=== PATIENT | male | born 1960 | race Two or more races ===

== ENCOUNTER 2018-03-05 07:44 | Day surgery (SDC) | payer OTHER ==
[2018-03-05] VITALS (7 sets, daily range): BP systolic 113–157; BP diastolic 71–80
[~2018-03-05] VITALS: Ht 172.7 cm; Wt 117.9 kg
--- NOTE | 2018-03-05 06:55 | Anethesia Preoperative Eval ---
Anesthesia Pre-op PMH/ROS General Date of Evaluation: Mar 05, 2018 Time of Evaluation: 06:52 Anesthesiologist: dave ASA Score: ASA 3 Mallampati Score Class I : Soft palate, uvula, fauces, pillars visible Class II: Soft palate, uvula, fauces visible Class III: Soft palate, base of uvula visible Class IV: Only hard plate visible Mallampati Classification: Class II Surgeon: yudy Diagnosis: gerd Surgical Procedure: egd Anesthesia History: none Social History: smoking - nonsmoker, alcohol use Family History: no anesthesia problems Allergies: Coded Allergies: No Known Allergies (Unverified , 03/04/18) Medications: see eMAR Past Medical History Cardiovascular: Reports: HTN, other - hypercholesterolemia; Denies: CAD, GA, valve dz, arrhythmia Gastrointestinal/Genitourinary: Reports: GERD; Denies: CRI, ESRD, other Musculoskeletal/Integumentary: Reports: OA, other - back pain, sciatica, neck pain Anesthesia Pre-op Phys. Exam Physician Exam Last Vital Signs Date Time Temp Pulse Resp B/P (MAP) Pulse Ox O2 Delivery O2 Flow Rate FiO2 03/05/18 08:28 Room Air 03/05/18 08:26 98.0 69 18 157/73 (101) 96 98.0 Constitutional: NAD Neurologic: CN 2-12 intact Cardiovascular: RRR Respiratory: CTA Gastrointestinal: S/NT/ND Airway Exam Mallampati Score: Class II MO: full Neck: supple TMD: 2fb ROM: full Teeth: intact Anesthesia Pre-op A/P Risk Assessment & Plan Assessment: asa3 Plan: mac Status Change Before Surgery: No Pre-Antibiotics Drug: Susana De Paz MD Mar 05, 2018 06:55
[~2018-03-05 07:44] MED LIST: Atropine Inj 1mg/10ml Syr IV PRN; DiphenhydrAMINE 50mg/ml Inj IVP PRN; LOSARTAN POTASS50 MG ORAL; Labetalol 5mg/ml 20ml vial IV PRN; Midazolam 2mg/2ml Inj IVP PRN; fentaNYL 100 mcg/2 mL IV PRN
[2018-03-05] MEDS ORDERED: PREVACID30 MG ORAL (08:22)
[2018-03-05] MEDS ORDERED: Lidocaine 1% MPF 10mg/ml 5ml ONE (08:30)
[2018-03-05] MEDS ORDERED: Propofol 200mg/20ml IV ONE (08:30)
[2018-03-05] MEDS ORDERED: LR 1000ml ONE (08:30)
--- NOTE | 2018-03-05 08:43 | Short Stay Surgery H&P ---
History of Present Illness History of Present Illness Chief Complaint Abdominal pain/GERDS HPI Chano Thompson is a 58 year old male who was admitted on for GERD Patient History Allergies: Coded Allergies: No Known Allergies (Unverified , 03/04/18) PAST MEDICAL HISTORY: (1) Hypertension (2) Hyperlipidemia (3) Arthritis Medication History Scheduled Lansoprazole* (Prevacid*), 30 MG ORAL DAILY, (Reported) Losartan Potassium* (Losartan Potassium*), 50 MG ORAL DAILY, (Reported) Review of Systems Cardiovascular: Reports: no symptoms, hypertension Respiratory: Reports: no symptoms Skeletal: Reports: trauma, other Gastrointestinal: Reports: gastro esophageal reflux disease Genitourinary: Reports: no symptoms Neurologic: Reports: no symptoms Endocrine: Reports: no symptoms Hematologic: Reports: no symptoms Physical Exam Vital Signs Last Vital Signs Date Time Temp Pulse Resp B/P (MAP) Pulse Ox O2 Delivery O2 Flow Rate FiO2 03/05/18 08:28 Room Air 03/05/18 08:26 98.0 69 18 157/73 (101) 96 98.0 Skin: normal HENT: normal Heart: normal Lungs: normal Abdomen: normal Extremities: normal Genitourinary: normal Plan Plan of Care Upper GI endoscopy and biopsy Preop Interventions None. Summary of Findings see the reports Attestation Are the patient's medical conditions optimized for surgery? Attestation Response: yes Beckie Courtney MD Mar 05, 2018 08:43
--- NOTE | 2018-03-05 08:44 | Pre-Procedure Note/Attestation ---
Pre-Procedure Note/Attestation Complete Prior to Procedure Planned Procedure: left Procedure Narrative: Examination of the upper GI tract via endoscopy Indications for Procedure Pre-Operative Diagnosis: R/O gastritis/gastric ulcer Attestation I attest that I discussed the nature of the procedure; its benefits; risks and complications; and alternatives (and the risks and benefits of such alternatives ), prior to the procedure, with the patient (or the patient's legal customer account representative). I attest that, if there was a reasonable possibility of needing a blood transfusion, the patient (or the patient's legal customer account representative) was given the [facility] standardized written summary, pursuant to the Dieter Justin Blood Safety Act ([place] Health and Safety Code # 1645, as amended). I attest that I re-evaluated the patient just prior to the surgery and that there has been no change in the patient's H&P, except as documented below: Beckie Courtney MD Mar 05, 2018 08:44
--- NOTE | 2018-03-05 08:59 | Endoscopy Procedure Note ---
Endoscopy Procedure Note General Indication for Procedure: Chronic heartburn/Gerds Procedures Performed: EGD - Small Hiatal Hernia. Lower esophageal erosions consistent with esophagitis, biopsied. Evidencee of Bueno's mucosa biopsied. Mild gastroduodenitis, biopsies obtaind from fundus and mid body of the stomach and distal duodenum. Specimen: yes Pt Tolerated Procedure Well: Yes Estimated Blood Loss: none Anesthesia Anesthesiologist: Dr. Short Anesthesia: moderate sedation Medications Medication Given: see anesthesia record Inserted Devices Implant(s) used?: No Quality Quality of Bowel Preparation: Excellent Was there any complications?: No GI Core Measures 50 yrs or older w/o bx or poly: Not Applicable 10yrs. F/U not recommended: Not Applicable If not recommended, why?: Med reason:<3 yrs.: System Reason:<3 yrs.: Beckie Courtney MD Mar 05, 2018 08:59
--- NOTE | 2018-03-05 09:00 | Discharge Instructions ---
Discharge Instructions Discharge Instructions Follow up with: Visit the docotor in office after 2 weeks For Congestive Heart Failure Reminder Report to your physician any weight gain of 5 pounds or more in one week. Beckie Courtney MD Mar 05, 2018 09:00
--- NOTE | 2018-03-05 09:21 | Immediate Post-Op Evaluation ---
Immediate Post-Op Evalulation Immediate Post-Op Evalulation Procedure: egd Date of Evaluation: Mar 05, 2018 Time of Evaluation: 09:18 IV Fluids: 250ml lr Blood Products: none Estimated Blood Loss: negligible Blood Pressure Systolic: 113 Blood Pressure Diastolic: 71 Pulse Rate: 64 Respiratory Rate: 18 O2 Sat by Pulse Oximetry: 97 Temperature (Fahrenheit): 97.3 Pain Score (1-10): 0 Nausea: No Vomiting: No Complications none Patient Status: awake, reacts, patent Hydration Status: adequate Drug: Susana De Paz MD Mar 05, 2018 09:21
--- NOTE | 2018-03-05 09:22 | 48 Hour Post Anesthesia Eval ---
Post Anesthesia Evaluation Procedure: egd Date of Evaluation: Mar 05, 2018 Time of Evaluation: 09:21 Blood Pressure Systolic: 120 0: 77 Pulse Rate: 69 Respiratory Rate: 18 Temperature (Fahrenheit): 97.3 O2 Sat by Pulse Oximetry: 97 Airway: patent Nausea: No Vomiting: No Pain Intensity: 0 Hydration Status: adequate Cardiopulmonary Status: stable Mental Status/LOC: patient returned to baseline Post-Anesthesia Complications: none Follow-up care needed: N/A Susana Horta MD Mar 05, 2018 09:22
--- NOTE | 2018-03-11 09:00 | Operative Note - Dictated ---
DATE OF OPERATION: 03/05/2018 SURGEON: Beckie Courtney M.D. PROCEDURE: Esophagogastroduodenoscopy with biopsy. PREOPERATIVE DIAGNOSIS: History of chronic gastroesophageal reflux and epigastric pain. POSTOPERATIVE DIAGNOSES: 1. Small hiatal hernia. 2. Evidence of Bueno's mucosa in the lower esophagus, biopsied. 3. Lower esophageal erosions/ulcerations, biopsy consistent with esophagitis. 4. Mild gastroduodenitis. Biopsies were taken from the fundus and the body and the distal duodenum. MEDICATION USED: Per Dr. Short, anesthesiologist. INSTRUMENT: GIF Olympus upper GI video endoscope. DESCRIPTION OF PROCEDURE: The patient after arriving endoscopy unit, was told about risks and benefits of the procedure which he accepted and signed informed consent. At this time, he was put on the left lateral decubitus position. After adequate IV sedation, the scope was gently passed through the cricopharyngeal area, was lodged into the upper esophagus and gradually advanced towards gastroesophageal junction. The up and middle part of the esophagus looked normal, however, upon reaching towards the lower esophagus, one could see evidence of Bueno's mucosa with linear ulceration. There was also evidence of small hiatal hernia as well. Biopsies were taken from ulcerated area as well as the mucosa, which looked to be consistent with Bueno's. At this time, the scope was passed through a small hiatal hernia and introduced into the stomach. Gastric cavity was distended with insufflation of air. The retroflexion maneuver was applied. The area of the gastroesophageal junction was examined, which revealed evidence of mild inflammatory process presenting with edematous gastric folds minimally. This area was biopsied. Subsequently, the scope was passed through the gastric body and another biopsy from the mid body of the stomach was also obtained, though there was no any evidence of ulcerations, tumors, polyps, angiodysplasia, etc. in the stomach area noted. Finally, the scope was passed through the pylorus, which revealed evidence of minimal edema at 11 o'clock, but no ulceration noted. No strictures noted. The scope was advanced into the duodenal bulb and over the distal area, there was seen evidence of some mild congestion and inflammatory process consistent with duodenitis, which was biopsied. Second portion of duodenum, however, looked completely normal. Finally, the scope was pulled out. The procedure was terminated. The patient tolerated the procedure well and left the endoscopy room in a good condition. Said Shilpi Courtney DR: HADLEY JOB#: [id number] CC:
--- NOTE | 2018-03-11 09:00 | Pre-op HX & Phy Repo 2 SIG ---
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 The patient was basically seen earlier sometime ago in my office complaining of chronic gastroesophageal acid reflux consistent with GERD. The applicant reports that he has been experiencing these symptoms of heartburn at least for the past 15 years and this has been quite bothersome and it is gradually increasing in symptomatology and severity. The patient has also been treated with medications such as PPIs and anti-acid and H2 blockers that he is currently taking Prevacid b.i.d. The patient also reports that he has been experiencing pain radiating towards his chest area as well. There has been no history of difficulty swallowing such as dysphagia, odynophagia, hematemesis, melena, gastrointestinal bleeding, etc. As I mentioned, the applicant was functioning as a patrol police lieutenant in the [place] [place] [employer]. He had injuries over different parts of the body including the hand and the right shoulder and the lower back and dorsal lumbar area as well and as such, he has been treated with multiple medications including nonsteroidal anti-inflammatory agents. As I mentioned, he was a patrol police lieutenant dealing with criminals and he had a lot of involvements with them physically as well, which was mentioned in my initial report. At this time, applicant also denies having had any diarrhea, constipation, nausea, or vomiting. PAST MEDICAL HISTORY: Significant for hypertension, hyperlipidemia, and arthritis. SURGERIES: None. MEDICATIONS: Currently, Prevacid 2 tablets per day, losartan 50 mg daily, atorvastatin 20 mg, sildenafil 20 mg daily as needed, and Aleve along with ibuprofen. ALLERGIES: None. HABITS: The applicant drinks a couple of drinks per week, but does not smoke cigarettes. REVIEW OF SYSTEMS: Basically history of present illness. The patient denies any shortness of breath, cough, chest pain, or angina. Though, he has had history of pain over his lower back due to his injuries at work. PHYSICAL EXAMINATION: GENERAL: At this time, reveals awake, alert, and oriented gentleman, and does not seem to be in any acute distress. He looks well developed and nourished and overweight significantly. VITAL SIGNS: All stable. HEENT: Normocephalic. Pupils equal in size and reactive to light and accommodation. No visible jaundice. Buccal cavity, tongue midline, well hydrated. No ulcers. NECK: Supple. No JVD, thyromegaly, or adenopathy. CHEST: Clear to auscultation and percussion. No rales or rhonchi. HEART: S1, S2 normal. Regular rhythm. No gallops or murmur. ABDOMEN: Soft, but obese. There is some tenderness over the upper part of the abdomen, but no organomegaly. No palpable mass noted. EXTREMITIES: Within normal limits. PREOPERATIVE IMPRESSION: 1. Chronic gastroesophageal reflux consistent with gastroesophageal reflux disease, rule out esophagitis, gastritis, gastric ulcer secondary to side effects of NSAID medications. 2. Hypertension, hyperlipidemia, and arthritis. RECOMMENDATION: The applicant seems to be stable at this time to undergo the procedure of upper GI endoscopy for which he has been scheduled. He understands the risks and benefits and will sign the consent. Said Shilpi Courtney DR: SHER JOB#: [id number] CC:
== END 2018-03-05 10:10 | disposition home or self-care (01) ==
LOC: GAS 07:44
DX: K29.90 Gastroduodenitis, unspecified, without bleeding (principal); K29.50 Unspecified chronic gastritis without bleeding; K22.70 Barrett's esophagus without dysplasia; K44.9 Diaphragmatic hernia without obstruction or gangrene; K20.9 Esophagitis, unspecified
CPT/HCPCS: 43239; J2704; J7120; 94003; 94150